=== PATIENT | male | born 1970 | race Caucasian/White ===

== ENCOUNTER 2025-05-12 12:57 | Observation (INO) | payer OTHER ==
[~2025-05-12] VITALS: Ht 172.7 cm; Wt 112.3 kg
[~2025-05-12 12:57] MED LIST: LIDEX0.05% T; PREDNICOT20 MG PO
[2025-05-12 13:04] VITALS: BP 142/97
[2025-05-12] MEDS ORDERED: IOHEXOL 350 MG/ML 100 ML VIAL IV ONE ×2 (13:15→13:38)
[2025-05-12] MEDS ORDERED: SODIUM CHLORIDE 0.9% 100 ML BAG IV ONE (13:15)
[2025-05-12 13:29] LABS: BASO # 0.1 10*3/uL (0.0-0.1); BASO % 1.1 % (0.0-1.0); EOS # 0.2 10*3/uL (0.0-0.4); EOS % 2.4 % (1.0-4.0); MEAN CELL VOLUME 83.1 fl (80.0-94.0); MEAN CORPUSCULAR HGB 28.2 pg (27.0-31.0); MEAN PLATELET VOLUME 10.0 fl (9.6-12.3); MONO # 0.6 10*3/uL (0.1-1.0); MONO % 8.3 % (3.0-9.0); NEUT # 4.4 10*3/uL (2.3-7.9); NEUT % 58.6 % (47.0-73.0); NUCLEATED RED BLOOD CELL 0.0 % (0.0-0.0); NUCLEATED RED BLOOD CELL 0.0 10*3/uL (0.0-0.0); PLATELET COUNT AUTOMATED 251 10*3/uL (130-400); RED CELL DISTRI WIDTH 11.7 % (0-14.5)
[2025-05-12] MEDS ORDERED: SODIUM CHLORIDE 0.9% 100 ML IV ONE (13:38)
[2025-05-12 13:51] LABS: BUN 19 mg/dl (9-23); SGPT/ALT 21 U/L (5-49)
[2025-05-12 14:04] LABS: ACT PARTIAL THROMBO TIME 25.1 SECONDS (20.0-32.1)
[2025-05-12] MEDS ORDERED: ACETAMINOPHEN 325 MG TAB PO PRN (17:05)
[2025-05-12 17:25] VITALS: BP 128/80
[2025-05-12 20:00] VITALS: BP 111/69
[2025-05-13] VITALS: BP 114/84
[2025-05-13 06:15] LABS: BUN 17 mg/dl (9-23)
[2025-05-13 08:00] VITALS: BP 126/90
[2025-05-13] MEDS ORDERED: ASPIRIN 325 MG ENTERIC COATED PO SCH (10:00)
[2025-05-13] MEDS ORDERED: ASPIRIN ENTERIC COATED 81 MG TAB PO SCH (10:00)
[2025-05-13 12:00] VITALS: BP 149/82
[2025-05-13] MEDS ORDERED: ATORVASTATIN CA40 M1 PO (13:44)
[2025-05-13] MEDS ORDERED: ASPIRIN ADULT L81 M2 PO (13:44)
[2025-05-13] MEDS ORDERED: ATORVASTATIN CALCIUM 40 MG TABLET PO SCH (22:00)
== END 2025-05-13 14:20 | disposition home or self-care (01) ==
LOC: ED 12:57 → EDHOLD 16:38 → 4E 16:38
PROVIDERS: Emergency Medicine; ADMIT Internal Medicine; ATTEND Internal Medicine
DX: G45.9 Transient cerebral ischemic attack, unspecified (principal); R11.0 Nausea; E66.9 Obesity, unspecified; R73.9 Hyperglycemia, unspecified; Z78.9 Other specified health status; Z79.899 Other long term (current) drug therapy

== ENCOUNTER → 2025-06-16 | Outpatient (CLI) | payer OTHER ==
[~2025-06-16] MED LIST changes: +ASPIRIN ADULT L81 M2 PO; +ATORVASTATIN CA40 M1 PO
== END | disposition home or self-care (01) ==
LOC: US 13:18
PROVIDERS: ATTEND Nurse Practitioner Family
DX: G54.9 Nerve root and plexus disorder, unspecified (principal)